=== PATIENT | female | born 1940 | race Caucasian/White ===

== ENCOUNTER 2024-04-21 06:46 | Inpatient (IN) | payer MEDICARE, OTHER, SELFPAY ==
[2024-04-08 12:52] VITALS: BMI 29.4
[2024-04-08 14:40] LABS: Hematocrit 39.6 % (37.0-47.0); Mean Corp Hgb Conc. 35.4 g/dL (33.0-37.0); Mean Corpuscular Hgb 30.6 pg (27.0-31.0); Mean Corpuscular Volume 86.5 fL (81.0-99.0); Mean Platelet Volume 10.3 fL (7.4-10.4); Platelet Count 331 10^3/uL (130-400); Red Blood Cell Count 4.58 10^6/uL (4.20-5.40); Red Cell Dist. Width 14.2 % (11.5-14.5); White Blood Cell Count 10.7 10^3/uL (4.8-10.8)
[2024-04-08 15:04] LABS: ALT (SGPT) 19 U/L (0-35); AST (SGOT) 23 U/L (14-36); Albumin 4.4 g/dl (3.5-5.0); Alkaline Phosphatase 71 U/L (38-126); Blood Urea Nitrogen 8 mg/dl (7-17); Carbon Dioxide 22 mmol/L (22-30); Chloride 97 mmol/L (98-107); Estimated Creatinine Clearance 68 ml/min; Glucose 99 mg/dl (70-99); Potassium 4.9 mmol/L (3.5-5.1); Sodium 134 mmol/L (135-145); Total Bilirubin 0.5 mg/dl (0.2-1.3); Total Protein 7.1 g/dl (6.3-8.2); eGFR > 60.00
[2024-04-16 12:46] VITALS: BMI 29.4
--- NOTE | 2024-04-16 13:11 | PTCARENOTE ---
Addendum entered by Tiffany Macdonald RN 04/16/24 14:10:
Dr. Rodriguez made aware.
Original Note:
Discussed Pre Surgical Educational Video for Total Joint Replacement with patient. Patient adamantly refuses to watch video. Explained that video was just educational to review precautions required for her safety after surgery. Patient again
adamantly refused. Lala Petersen notified.
[2024-04-21] VITALS (21 sets, daily range): BP systolic 98–153; BP diastolic 50–80; PULSE 80–81; O2SAT 94; BMI 29.4
[2024-04-21] MEDS: CELEBREX 200 MG PO (07:55)
[2024-04-21] MEDS: TYLENOL 650 MG PO ×3 (07:56→19:35)
[2024-04-21] MEDS: NORMOSOL-R/PLASMALYTE-A 1000 IV ×2 (07:57→16:28)
--- NOTE | 2024-04-21 10:04 | PTCARENOTE ---
Patient very upset that she is waiting 3 hours. Patients order changed and she is now 3rd. Dr. Rodriguez contacted and spoke with patient and also went into waiting room to talk with daughters. Patient toileted twice and given warm blankets. [place]
manager it security aware of patient upset and waiting. Will monitor patient.
[2024-04-21] MEDS: ROXICODONE 5 MG PO (13:08)
--- NOTE | 2024-04-21 14:10 | W.PN.UPDATE ---
Update Note
Progress Note Update
R hip OA s/p R PEGGY w/ Dr Rodriguez 04/21/24
DVT prophylaxis - ASA, b/l venous foot pumps
HTN - + parameters - monitor BP
H/o long QT - monitor on tele
- NO Zofran
RAD - monitor O2
- IS
GERD - add Pepcid HS
Lumbar DDD w/ radiculopathy - consider Gabapentin or Lyrica
HLD
Diverticulosis
Migraines
Hypothyroidism
Osteoporosis
H/o hyponatremia 2* HCTZ
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
Prediabetes, A1c 6.0
Remote tobacco abuse
[2024-04-21] MEDS: COMPAZINE 5 MG IV (14:23)
--- NOTE | 2024-04-21 16:01 | PTCARENOTE ---
1548: Patient arrived to 2S post R PEGGY. Full head to toe assessment completed. B/L LE neurovascular assessment completed. R hip primaseal clean dry and intact. IVF running per order. Patient on 2L NC with SpO2 greater than 92%. Call you within
reach and bed in lowest position.
[2024-04-21] MEDS: DILAUDID 0.5 MG IV (16:05)
[2024-04-21] MEDS: TYLENOL PO (16:24)
[2024-04-21] MEDS: REGLAN 10 MG IV (16:53)
[2024-04-21] MEDS: ASPIRIN 325 MG PO (17:38)
--- NOTE | 2024-04-21 17:46 | PTCARENOTE ---
1654: Patient vomited a small pale yellow amount. Dr. Rodriguez gave verbal order for Reglan 10 mg IV Q6HR PRN. PRN Reglan given per SEP. Care ongoing at this time.
[2024-04-21] MEDS: ANCEF 5 IV (19:35)
[2024-04-21] MEDS: BACTROBAN 2% OINTMENT 1 APPLIC NASAL (19:45)
[2024-04-21] MEDS: PEPCID 20 MG PO (22:01)
[2024-04-21] MEDS: COLACE PO (22:01)
[2024-04-21] MEDS: CRESTOR 40 MG PO (22:01)
[2024-04-21] MEDS: DECADRON 4 MG PO (22:01)
[2024-04-21] MEDS: SENOKOT PO (22:01)
[2024-04-22] VITALS (8 sets, daily range): BP systolic 142–154; BP diastolic 74–82; PULSE 79–89; O2SAT 93
[2024-04-22] MEDS: TYLENOL 650 MG PO ×4 (00:09→19:46)
[2024-04-22] MEDS: ROXICODONE 10 MG PO (02:07)
[2024-04-22] MEDS: ANCEF 5 IV (04:12)
[2024-04-22] MEDS: TYLENOL PO ×2 (05:19→08:00)
[2024-04-22] MEDS: SYNTHROID 25 MCG PO (05:19)
[2024-04-22] MEDS: REGLAN 10 MG IV (08:43)
[2024-04-22] MEDS: FLUSH (NSS) 2 FLUSH IV (08:44)
[2024-04-22] MEDS: ASPIRIN 325 MG PO (11:12)
[2024-04-22] MEDS: BACTROBAN 2% OINTMENT 1 APPLIC NASAL ×2 (11:13→19:46)
[2024-04-22] MEDS: CELEBREX 200 MG PO (11:13)
[2024-04-22] MEDS: DECADRON 4 MG PO ×2 (11:14→19:46)
[2024-04-22] MEDS: SENOKOT PO (11:14)
[2024-04-22] MEDS: COLACE PO (11:14)
[2024-04-22] MEDS: ZEBETA 5 MG PO (11:16)
[2024-04-22] MEDS: ROXICODONE 5 MG PO (11:22)
--- NOTE | 2024-04-22 12:12 | PTCARENOTE ---
assumed care of pt this am at 0715. OOB to BS and pt developed nausea and dry heaves. pt incontinent of urine during episode. medicated with Reglan IV per SEP and pt encouraged to order breakfast. pt tolerated scrambled eggs, toast and soheila
umair without further nausea. pt given am medications with water per SEP. pt had Physical therapy session with episode of nausea and vomiting during therapy. vomited 100 ml yellow liquid. currently resting in bed. will observe.
--- NOTE | 2024-04-22 12:21 | CM ---
Met with patient and daughters Susie & Cris
IA Completed.
DX: R TKA
patient lives in a [place] community with her daughter. 1 floor
PLOF: Independent without a device.
DME: walker, raised toilet seat, shower chair
PT recommend home health. [facility] referral was sent pre-op per daughter.
Patient n/v - PT will see again later today
Denies any food/housing/utilities/transportation insecurities.
Alyce from [facility] notified.
PCP: Kelechi Grady
Pharmacy: [facility] [place] [address]
PLAN: Home with [facility]
Daughter to transport
[facility] FAX #: [phone]
[2024-04-22] MEDS: LIDOCAINE 4% PATCH 2 PATCH TOPICAL (13:20)
[2024-04-22] MEDS: NSS (PRESERVATIVE FREE) 10 ML IV (13:21)
[2024-04-22] MEDS: PROTONIX IV 40 MG IV (13:22)
[2024-04-22] MEDS: FLUSH (NSS) 1 FLUSH IV (13:23)
--- NOTE | 2024-04-22 14:17 | W.PN.ORTHO ---
Today's Communication / Plan
-
Monitor N/V w/ changes outlined in note.
Work w/ PT and OT as able.
D/c when clinically stable.
Assessment
.
Distal Motor Intact: Yes
Dressing:
Scant old incisional bleeding.
Assessment:
R hip OA s/p R PEGGY w/ Dr Rodriguez 04/21/24
DVT prophylaxis - ASA, b/l venous foot pumps
PONV, likely 2* Oxycodone - changed to Tramadol prn
- Compazine PO TID
- Daily Protonix
- Monitor and reassess
HTN - + parameters - BPs overall stable
H/o long QT - maintaining NSR on tele
- NO Zofran
RAD - O2 stable on RA
- IS
GERD - add Protonix
Lumbar DDD w/ radiculopathy - will order low dose Gabapentin
HLD
Diverticulosis
Migraines
Hypothyroidism
Osteoporosis
H/o hyponatremia 2* HCTZ
SNOQUALMIE
Prediabetes, A1c 6.0
Remote tobacco abuse
Plan
.
Surgery / Date: R PEGGY w/ Dr Rodriguez 04/21/24
DVT Prophylaxis: Aspirin
Activity:
Out of bed.
PT/OT
Discharge Plan: Home w/ VN
Subjective
.
.:
Patient examined resting in bed today.
PONV likely 2* Oxycodone - medication changed. Anti-emetics ordered.
Vital Signs and Labs
.
Vital Signs and Labs:
Lab Results
04/08/24 12:50
04/08/24 12:50
Temp Pulse Resp BP Pulse Ox
97.7 F 89 16 149/80 96
04/22/24 11:18 04/22/24 11:18 04/22/24 11:18 04/22/24 11:18 04/22/24 11:18
Non-invasive Hgb result: 14.2
Physical Exam
-
HEENT: No pallor, cyanosis, or jaundice. Throat clear.
NECK: Supple. No JVD.
RESPIRATORY: Lungs clear to auscultation.
CVS: S1, S2 normal. RRR.�
ABDOMEN: Soft, non-tender. No distension.
EXTREMITIES: Strength equal, no calf pain with palpation/dorsiflexion. Calves soft.
ESTIMATOR BINDING: AOx3. No focal deficits. manager mountain grossly intact
[2024-04-22] MEDS: COMPAZINE 5 MG PO ×2 (15:58→22:19)
[2024-04-22] MEDS: NEURONTIN 100 MG PO ×2 (17:57→22:19)
[2024-04-22] MEDS: COLACE 100 MG PO (19:45)
[2024-04-22] MEDS: ULTRAM 50 MG PO (19:45)
[2024-04-22] MEDS: SENOKOT 17.2 MG PO (19:45)
[2024-04-22] MEDS: CRESTOR 40 MG PO (22:19)
[2024-04-23] MEDS: TYLENOL PO (00:04)
[2024-04-23 03:00] VITALS: BP 151/67
[2024-04-23] MEDS: TYLENOL 650 MG PO ×3 (04:05→11:25)
[2024-04-23] MEDS: REGLAN 10 MG IV (04:23)
[2024-04-23] MEDS: SYNTHROID 25 MCG PO (05:43)
--- NOTE | 2024-04-23 06:34 | PTCARENOTE ---
pt ambulated in room to and from bedside commode, she declined to ambulate on the unit.
[2024-04-23 07:45] VITALS: BP 139/64
[2024-04-23] MEDS: COLACE 100 MG PO (08:25)
[2024-04-23] MEDS: SENOKOT 17.2 MG PO (08:25)
[2024-04-23] MEDS: ASPIRIN 325 MG PO (08:25)
[2024-04-23] MEDS: NEURONTIN 100 MG PO (08:27)
[2024-04-23] MEDS: DECADRON 4 MG PO (08:27)
[2024-04-23] MEDS: COMPAZINE 5 MG PO (08:27)
[2024-04-23] MEDS: CELEBREX 200 MG PO (08:27)
[2024-04-23] MEDS: ZEBETA 5 MG PO (08:27)
[2024-04-23] MEDS: LIDOCAINE 4% PATCH 2 PATCH TOPICAL (08:27)
[2024-04-23] MEDS: PROTONIX 40 MG PO (08:27)
[2024-04-23 11:28] VITALS: BP 152/70
--- NOTE | 2024-04-23 11:38 | W.PN.ORTHO ---
Today's Communication / Plan
-
D/c today since clinically stable.
Assessment
.
Distal Motor Intact: Yes
Dressing:
Scant old incisional bleeding noted - unchanged from yesterday.
Assessment:
R hip OA s/p R PEGGY w/ Dr Rodriguez 04/21/24
DVT prophylaxis - ASA, b/l venous foot pumps
PONV, likely 2* Oxycodone - changed to Tramadol prn
- Compazine PO TID -> will switch to [id number] upon d/c
- Daily Protonix
- Improved by POD 2
HTN - + parameters - BPs overall stable
H/o long QT - maintaining NSR on tele
- NO Zofran
RAD - O2 stable on RA
- IS
GERD - added Protonix
Lumbar DDD w/ radiculopathy - on low dose Gabapentin
HLD
Diverticulosis
Migraines
Hypothyroidism
Osteoporosis
H/o hyponatremia 2* HCTZ
[place]
Prediabetes, A1c 6.0
Remote tobacco abuse
Plan
.
Surgery / Date: R PEGGY w/ Dr Rodriguez 04/21/24
DVT Prophylaxis: Aspirin
Activity:
Out of bed.
PT/OT
Discharge Plan: Home w/ VN
Subjective
.
.:
Patient resting comfortably in her chair this AM.
R hip pain well tolerated in comparison to yesterday.
Denies any further nausea.
Eager for potential d/c today.
Vital Signs and Labs
.
Vital Signs and Labs:
Lab Results
04/08/24 12:50
04/08/24 12:50
Temp Pulse Resp BP Pulse Ox
98.1 F 61 18 152/70 96
04/23/24 11:28 04/23/24 11:28 04/23/24 11:28 04/23/24 11:28 04/23/24 11:28
Non-invasive Hgb result: 14.4
Physical Exam
-
HEENT: No pallor, cyanosis, or jaundice. Throat clear.
NECK: Supple. No JVD.
RESPIRATORY: Lungs clear to auscultation.
CVS: S1, S2 normal. RRR.�
ABDOMEN: Soft, non-tender. No distension.
EXTREMITIES: Strength equal, no calf pain with palpation/dorsiflexion. Calves soft.
SALES AGENT [employer] INSURANCE: AOx3. No focal deficits. customer services manager grossly intact
--- NOTE | 2024-04-23 11:46 | CM ---
Patient seen at bedside.
IMM explained & signed. In chart.
Alyce from [facility].
PLAN: Home with [facility]
Daughter to transport
[facility]
Fax #: [phone]
--- NOTE | 2024-04-23 11:54 | W.DS.TRANS ---
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
-
Discharge Instructions:
Sleep Apnea Risk Low
Discharge Diagnosis/Procedures R hip OA s/p R PEGGY w/ Dr Rodriguez 04/21/24
Diet Other diet
Additional Diets Diabetic carb controlled x1 week for wound
healing/infection prevention
Activity As tolerated,With Walker
Driving Restrictions Not until seen by your Dr
Bathing Restrictions OK to Shower
Other Services PT,VN
Wound Care Dressing to be removed 1 week post-surgery.
Instructions:
Stand-Alone Forms: Total Hip/Knee Replacement D/C
Changes to Home Medications: Yes
Discharge Medications:
DC Medications w/original date entered in [employer] [employer]
bisoprolol fumarate 5 mg tablet 5 mg PO DAILY 04/15/24
levothyroxine 25 mcg tablet 25 mcg PO DAILY 04/15/24
multivitamin 1 tab PO DAILY 04/15/24
mupirocin 2 % topical ointment 1 applic topical BID 04/15/24
rosuvastatin 40 mg tablet 40 mg PO HS 04/15/24
acetaminophen 500 mg tablet (Tylenol Extra Strength) 1,000 mg (2 x 500 mg) PO Q6H #60 tabs 04/23/24
aspirin 325 mg tablet 325 mg PO DAILY #30 tabs 04/23/24
celecoxib 200 mg capsule (Celebrex) 200 mg PO DAILY PRN severe breakthrough pain #30 caps 04/23/24
dexamethasone 4 mg tablet 4 mg PO Q12H Anti-inflammatory #7 tabs 04/23/24
docusate sodium 100 mg capsule 100 mg PO BID #30 caps 04/23/24
gabapentin 100 mg capsule 100 mg PO TID neuropathic pain #30 caps 04/23/24
lansoprazole 30 mg capsule,delayed release (Prevacid) 30 mg PO DAILY #30 caps 04/23/24
lidocaine 4 % topical patch 2 patch topical DAILY #30 ea 04/23/24
prochlorperazine maleate 5 mg tablet 5 mg PO Q8H PRN nausea and vomiting #30 tabs 04/23/24
sennosides 8.6 mg tablet (Senna Laxative) 17.2 mg (2 x 8.6 mg) PO BID #30 tabs 04/23/24
tramadol 50 mg tablet 50 - 100 mg (1 - 2 x 50 mg) PO Q6H PRN moderate-severe pain #30 tabs 04/23/24
Home Medication Changes
acetaminophen 500 mg tablet (Tylenol Extra Strength) 1,000 mg (2 x 500 mg) PO Q6H #60 tabs 04/23/24
aspirin 325 mg tablet 325 mg PO DAILY #30 tabs 04/23/24
celecoxib 200 mg capsule (Celebrex) 200 mg PO DAILY PRN severe breakthrough pain #30 caps 04/23/24
dexamethasone 4 mg tablet 4 mg PO Q12H Anti-inflammatory #7 tabs 04/23/24
docusate sodium 100 mg capsule 100 mg PO BID #30 caps 04/23/24
gabapentin 100 mg capsule 100 mg PO TID neuropathic pain #30 caps 04/23/24
lansoprazole 30 mg capsule,delayed release (Prevacid) 30 mg PO DAILY #30 caps 04/23/24
lidocaine 4 % topical patch 2 patch topical DAILY #30 ea 04/23/24
prochlorperazine maleate 5 mg tablet 5 mg PO Q8H PRN nausea and vomiting #30 tabs 04/23/24
sennosides 8.6 mg tablet (Senna Laxative) 17.2 mg (2 x 8.6 mg) PO BID #30 tabs 04/23/24
tramadol 50 mg tablet 50 - 100 mg (1 - 2 x 50 mg) PO Q6H PRN moderate-severe pain #30 tabs 04/23/24
Pending Results: No
[2024-04-23 12:32] VITALS: BP 112/69; BP 176/77
== END 2024-04-23 13:36 | disposition home health service (06) | DRG 470 ==
LOC: 2 SOUTH 06:46
PROVIDERS: ADMITTING PHYSICIAN Orthopaedic Surgery; FAMILY PHYSICIAN Family Medicine; REFERRING PHYSICIAN Internal Medicine Cardiovascular Disease
PROC: 0SR903A Replacement of Right Hip Joint with Ceramic Synthetic Substitute, Uncemented, Open Approach (ICD-10-PCS; 2024-04-21)
DX: M16.11 Unilateral primary osteoarthritis, right hip (principal); I10 Essential (primary) hypertension; J45.909 Unspecified asthma, uncomplicated; K21.9 Gastro-esophageal reflux disease without esophagitis; M51.16 Intervertebral disc disorders with radiculopathy, lumbar region; E78.5 Hyperlipidemia, unspecified; K57.90 Diverticulosis of intestine, part unspecified, without perforation or abscess without bleeding; E03.9 Hypothyroidism, unspecified
CPT/HCPCS: 36415; 73502; 80053; 83036; 85027; 87070; 97110; 97116; 97162; 97166; 97530; 97535; C1776

== ENCOUNTER 2025-01-17 01:03 | Emergency (ER) | payer MEDICARE, OTHER, SELFPAY ==
[2025-01-17 01:09] VITALS: BP 131/98
--- NOTE | 2025-01-17 03:06 | ED.GENMED ---
History of Present Illness
General
Chief Complaint: Headache
Source: patient and family
Exam Limitations: none
Time Seen by Provider: 01/17/25 02:58
Nursing documentation reviewed up to this point in time: agreed with
History of Present Illness
History of Present Illness:
This is an 84-year-old woman with history of hypertension, hyperlipidemia, cervical DJD, longstanding history of vertigo with prolonged exacerbation of vertigo over the past 4 months. She has been following with physical therapy for her vertigo and
according to daughter, vertigo symptoms associated with the left ear have improved/resolved but she continues with vertigo symptoms associated with the right and as such she is unable to lie supine, unable to lie on her right side due to
exacerbation of vertigo with nausea.
She also has longstanding history of migraine headaches and admits to increased number of headaches over the past week or 2. Headaches generally resolve promptly with Advil.
Tonight however after lying down to bed she developed abrupt onset of left posterior neck pain that radiates to her left occiput, moderate to severe in nature. She does admit to occasional neck pain but not to this degree. She has had mild nausea
without vomiting. No weakness or numbness. Currently denies dizziness but states dizziness will probably return if she lies supine.
She has not had a fever nor chills, no vision difficulty, no sore throat no nasal congestion.
No falls or injury.
She has not taken anything for discomfort tonight.
Past History
Past History
ED Past Medical History: GERD, HTN, Hypercholesterolemia, Hypothyroidism and Other (Cervical DJD, migraine headaches, vertigo)
ED Past Surgical History: Gynecological (Hysterectomy) and Orthopedic (L5 laminectomy; right hip replacement)
Social History
Tobacco: Non-smoker
Alcohol: None
Living: with family
Employment: Retired
Family History
Family History: Other (Noncontributory)
Phy Exam
Physical Exam
Physical Exam:
GENERAL: 84-year-old woman appears her stated age, bright and alert, pleasant, appears in no acute distress. Lying Semi-Devine's on stretcher rotated slightly to the left.
EYE: pupils equal and reactive. anicteric
NECK: Supple, no midline bony tenderness, mild tenderness left paracervical region and mildly restricted cervical rotation related to pain. No meningismus, no significant adenopathy.
ENT: posterior pharynx is clear, oral mucosa is moist. TM clear b/l, nares patent.
CARDIAC: Regular rate and rhythm. no murmur.
LUNGS: Clear breath sounds bilaterally, no acute respiratory distress, no wheezes/rales/rhonchi
ABDOMEN: Soft, nondistended, without focal tenderness, no r/g, normoactive BS.
NEUROLOGICAL: Alert and oriented x3, no focal neuro deficits. Motor strength is 5/5 bilaterally. Gross sensation is intact.
SKIN: Warm and dry, normal color, skin intact. No rash.
MUSCULOSKELETAL: No C/C/E. peripheral pulses are full and equal b/l. No palpable tenderness.
PSYCH: Normal and appropriate interaction.
Course
Orders/Labs/Results
Orders:
Orders
01/17/25 03:00
BMP [Basic Metabolic Panel] Urgent
Complete Blood Count/With Diff Urgent
01/17/25 03:05
0.9% Sodium Chloride 500 ml [Nss] 500 ml IV BOLUS
Diphenhydramine [Benadryl] 25 mg IV NOW STA
Ketorolac [Toradol] 15 mg IV NOW STA
Prochlorperazine [Compazine] 5 mg IV NOW STA
Abnormal Lab Results
01/17/25
03:00
WBC 12.9 H 10^3/uL
(4.8-10.8)
Absolute Neuts (auto) 8.9 H 10^3/uL
(1.4-6.5)
Absolute Monos (auto) 1.3 H 10^3/uL
(0.1-0.6)
Lymphocytes % 18.4 L %
(20.5-51.1)
Monocytes % 9.9 H %
(1.7-9.3)
Glucose 146 H mg/dl
(70-99)
01/17/25 03:00
01/17/25 03:00
Vital Signs
Initial and Last Documented VS:
Initial Vital Signs
Temp Pulse Resp BP Pulse Ox
98.4 F 70 20 131/98 96
01/17/25 01:09 01/17/25 01:09 01/17/25 01:09 01/17/25 01:09 01/17/25 01:09
Last Documented Vital Signs
Temp Pulse Resp BP Pulse Ox
98.4 F 70 20 164/73 95
01/17/25 01:09 01/17/25 01:09 01/17/25 01:09 01/17/25 04:30 01/17/25 04:30
MDM/Problems Addressed
Differential Diagnosis Includes:
Patient with acute left posterior neck pain, left occipital pain after lying down to bed.
Concern for musculoskeletal neck pain/exacerbation of cervical DJD, exacerbation of migraine headache.
Overall nontoxic in appearance, vital signs within normal limits and no focal neurodeficits however due to age must also consider vertebrobasilar insufficiency, vertebral dissection, CVA, intracranial bleeding.
I have recommended CT of the head and cervical spine but patient adamantly refuses stating she is unable to lie supine due to her ongoing vertigo.
Will start with pain medication; IV Toradol, Compazine, Benadryl and IV fluids and continue to observe.
Chronic conditions affecting care: HTN and Other (Migraine headaches, cervical DJD, vertigo)
*Pulse Oximetry
SaO2: 96
Oxygen Mode of Delivery: Room air
Patient hypoxic: no
*Critical Care Note
Total Time (30-74mins, 75-104mins- exclusive of procedures): Not Applicable
Update Note
Update Note:
04:45
Patient feeling markedly improved with near complete relief of left posterior neck pain, left occipital discomfort. She does continue with mildly restricted cervical rotation with increased cervical pain with rotation to the left.
She continues to have no radicular signs or symptoms.
Has ambulated to the bathroom with steady unaided gait.
I suspect cervical strain/exacerbation of cervical DJD as cause for discomfort. Recommend she continue ibuprofen as needed.
Prompt follow-up with PCP and patient plans to follow-up with neurology as well.
ED Attending Note
-
Portions of this chart may have been created with voice recognition software.� Occasional wrong word or��sound alike� substitutions may have occurred due to the inherent limitations of voice recognition software.
Discharge Plan
Departure
Patient Disposition: Home (Routine Discharge)
Date of Disposition: 01/17/25
Time of Disposition: 04:46
Patient with high blood pressure during this ER visit?: No
Condition: Good
Discharge Problem:
acute exacerbation of cervical DJD
Instructions: Neck pain - ED discharge instructions
Prescriptions:
No Action
multivitamin Tablet
1 tab PO DAILY
levothyroxine 25 mcg Tablet
25 mcg PO DAILY
bisoprolol fumarate 5 mg Tablet
5 mg PO DAILY
mupirocin 2 % Ointment
1 applic TOPICAL BID
rosuvastatin 40 mg Tablet
40 mg PO HS
aspirin 325 mg Tablet
325 mg PO DAILY Qty: 30 0RF
Rx Instructions:
Take daily x4 weeks for blood clot prevention
docusate sodium 100 mg Capsule
100 mg PO BID Qty: 30 0RF
prochlorperazine maleate 5 mg Tablet
5 mg PO Q8H PRN (Reason: nausea and vomiting) Qty: 30 0RF
dexamethasone 4 mg Tablet
4 mg PO Q12H Qty: 7 0RF
Rx Instructions:
Restart night of discharge and continue every 12 hours until finished.
Take with food.
lidocaine 4 % Adhesive Patch,Medicated
2 patch topical DAILY Qty: 30 0RF
Rx Instructions:
Over the counter. 12 hours on, 12 hours off.
Apply to sides of right thigh/hip.
gabapentin 100 mg Capsule
100 mg PO TID Qty: 30 0RF
sennosides [Senna Laxative] 8.6 mg Tablet
17.2 mg PO BID Qty: 30 0RF
lansoprazole [Prevacid] 30 mg capsule,delayed release(DR/EC)
30 mg PO DAILY Qty: 30 0RF
Rx Instructions:
Home medication.
Take daily while on post-surgical pain meds to reduce GI upset.
acetaminophen [Tylenol Extra Strength] 500 mg tablet
1,000 mg PO Q6H Qty: 60 0RF
Rx Instructions:
DO NOT exceed >4000 mg daily.
tramadol 50 mg tablet
50 - 100 mg PO Q6H PRN (Reason: moderate-severe pain) Qty: 30 0RF
Rx Instructions:
1 tab for moderate pain, 2 if severe.
Dx total joint
celecoxib [Celebrex] 200 mg capsule
200 mg PO DAILY PRN (Reason: severe breakthrough pain) Qty: 30 0RF
Rx Instructions:
Home medication.
Take as needed with food for severe breakthrough pain.
Do NOT take within 2 hours of Aspirin.
Referrals:
Teena Stephenson PA-C [Family Provider, Family Practice] - Call in 1-3 days for appt
Interventions
Interventions:
*Risk Screen - Suicide Last Done: 01/17/25 01:09
*Neglect/Abuse Screening Last Done: 01/17/25 01:09
*ED- Fall Risk Assessment Last Done: 01/17/25 01:15
*ED COVID-19 Vaccine History Last Done: 01/17/25 01:15
Discharge Date and Time
Print Language: BRITISH
[2025-01-17 03:07] LABS: Hematocrit 39.1 % (37.0-47.0); Hemoglobin 13.5 g/dL (12.0-16.0); Mean Corp Hgb Conc. 34.5 g/dL (33.0-37.0); Mean Corpuscular Volume 88.9 fL (81.0-99.0); Nucleated Red Blood Cells % 0 %; Platelet Count 326 10^3/uL (130-400); Red Cell Dist. Width 13.2 % (11.5-14.5)
[2025-01-17 03:22] LABS: Blood Urea Nitrogen 13 mg/dl (7-17); Calcium 9.5 mg/dl (8.4-10.2); Carbon Dioxide 22 mmol/L (22-30); Chloride 106 mmol/L (98-107); Glucose 146 mg/dl (70-99); Potassium 4.2 mmol/L (3.5-5.1); Sodium 136 mmol/L (135-145); eGFR > 60.00
[2025-01-17] MEDS: NSS 500 IV (03:26)
[2025-01-17] MEDS: COMPAZINE 5 MG IV (03:27)
[2025-01-17] MEDS: BENADRYL 25 MG IV (03:27)
[2025-01-17] MEDS: TORADOL 15 MG IV (03:27)
[2025-01-17 03:37] VITALS: BP 180/70
[2025-01-17 04:00] VITALS: BP 179/66
[2025-01-17 04:30] VITALS: BP 164/73
== END 2025-01-17 05:12 | disposition home or self-care (01) ==
LOC: EMR 01:03
PROVIDERS: EMERGENCY PHYSICIAN Emergency Medicine; FAMILY PHYSICIAN Physician Assistant Medical
DX: M47.812 Spondylosis without myelopathy or radiculopathy, cervical region (principal); R51.9 Headache, unspecified; E03.9 Hypothyroidism, unspecified; E78.00 Pure hypercholesterolemia, unspecified; I10 Essential (primary) hypertension
CPT/HCPCS: 96374; 96375; 96361; 99284; 80048; 85025

== ENCOUNTER → 2025-05-27 15:20 | Outpatient (REF) | payer MEDICARE, OTHER, SELFPAY | LOC: HWRAD 15:20 | PROVIDERS: ATTENDING PHYSICIAN Physician Assistant; FAMILY PHYSICIAN Physician Assistant Medical | DX: J18.9 Pneumonia, unspecified organism (principal) | CPT/HCPCS: 71046 ==